=== PATIENT | male | born 1995 | race Caucasian/White ===

== ENCOUNTER 2022-07-15 06:24 | Emergency (ER) | payer OTHER ==
[2022-07-15 06:35] VITALS: TEMP 98
[2022-07-15] MEDS ORDERED: PANTOPRAZOLE 40 MG/10 ML VIAL IVP STA (06:43)
[2022-07-15] MEDS ORDERED: SODIUM CHLORIDE 0.9% 2,000 ML IV STA (06:43)
[2022-07-15] MEDS ORDERED: ONDANSETRON 4 MG/2 ML VIAL IVP STA (06:43)
[2022-07-15] MEDS ORDERED: KETOROLAC 15 MG/ML 1 ML VIAL IVP STA (06:43)
[2022-07-15] MEDS ORDERED: MAG HYDROX/AL HYDROX/SIMETH 30 ML, HYOSCYAMINE ELIXIR 10 ML PO STA ×2 (06:44)
--- NOTE | 2022-07-15 06:46 | ED ---
Abdominal Pain HPI - General Chief Complaint: Abdominal Pain Stated Complaint: Abdominal Pain, Vomiting Time Seen by Provider: 07/15/22 06:29 Source: patient, RN notes reviewed Mode of arrival: ambulatory Limitations: no limitations - History of Present Illness Initial Comments: This a 26-year-old male presents emergency Department chief complaint of abd ominal pain, nausea vomiting. Patient states he is eating some jalapeno poppers last night states that did not sit well he states around midnight started vomiting a temp to eat after that and states he's been vomiting persistently for last 4 hours. Patient denies any fevers or chills no sick contacts. Patient states that he has diffuse abdominal plain non-localized. No dysuria no hematuria denies having any bowel movements. Patient has no dysuria no reported fever denies any severe past medical history. - Related Data Previous Rx's Medication Instructions Recorded Ondansetron Odt [Zofran Odt] 4 mg PO Q8HR PRN #10 tab 07/15/22 Allergies Allergy/AdvReac Type Severity Reaction Status Date / Time No Known Allergies Allergy Verified 07/15/22 06:32 Review of Systems ROS Statement: Those systems with pertinent positive or pertinent negative responses have been documented in the HPI. ROS Other: All systems not noted in ROS Statement are negative. Past Medical History Past Medical History: No Reported History History of Any Multi-Drug Resistant Organisms: None Reported Past Surgical History: No Surgical Hx Reported Past Psychological History: Anxiety, Depression Smoking Status: Current every day smoker Past Alcohol Use History: Occasional Past Drug Use History: None Reported General Exam Limitations: no limitations General appearance: alert, in no apparent distress Head exam: Present: atraumatic, normocephalic, normal inspection Eye exam: Present: normal appearance, PERRL, EOMI. Absent: scleral icterus, conjunctival injection, periorbital swelling ENT exam: Present: normal exam, normal oropharynx, mucous membranes moist Neck exam: Present: normal inspection, full ROM. Absent: tenderness, meningismus, lymphadenopathy Respiratory exam: Present: normal lung sounds bilaterally. Absent: respiratory distress, wheezes, rales, rhonchi, stridor Cardiovascular Exam: Present: regular rate, normal rhythm, normal heart sounds. Absent: systolic murmur, diastolic murmur, rubs, gallop, clicks GI/Abdominal exam: Present: soft, tenderness (Diffuse), normal bowel sounds. Absent: distended, guarding, rebound, rigid Neurological exam: Present: alert Skin exam: Present: warm, dry, intact, normal color. Absent: rash Course Vital Signs 07/15/22 06:32 Temperature 98 F Pulse Rate 66 Respiratory 16 Rate Blood Pressure 159/87 O2 Sat by Pulse 98 Oximetry Medical Decision Making - Medical Decision Making 26 -year-old male presented from for nausea vomiting abdominal pain. Patient ct does not show any acute process. Patient has enteritis-type symptoms. Patient was hydrated, given antiemetics will be discharged in stable condition return parameters discussed. - Lab Data Result diagrams: 07/15/22 06:46 07/15/22 06:46 Lab Results 07/15/22 07/15/22 Range/Units 06:46 06:46 WBC 8.9 (3.8-10.6) k/uL RBC 5.02 (4.30-5.90) m/uL Hgb 14.9 (13.0-17.5) gm/dL Hct 43.1 (39.0-53.0) % MCV 85.8 (80.0-100.0) fL MCH 29.6 (25.0-35.0) pg MCHC 34.5 (31.0-37.0) g/dL RDW 13.6 (11.5-15.5) % Plt Count 258 (150-450) k/uL MPV 8.7 Neutrophils % 72 % Lymphocytes % 20 % Monocytes % 4 % Eosinophils % 1 % Basophils % 1 % Neutrophils # 6.5 (1.3-7.7) k/uL Lymphocytes # 1.8 (1.0-4.8) k/uL Monocytes # 0.3 (0-1.0) k/uL Eosinophils # 0.1 (0-0.7) k/uL Basophils # 0.1 (0-0.2) k/uL Sodium 138 (137-145) mmol/L Potassium 4.1 (3.5-5.1) mmol/L Chloride 104 (98-107) mmol/L Carbon Dioxide 26 (22-30) mmol/L Anion Gap 8 mmol/L BUN 13 (9-20) mg/dL Creatinine 1.02 (0.66-1.25) mg/dL Est GFR (CKD-EPI)AfAm >90 (>60 ml/min/1.73 sqM) Est GFR (CKD-EPI)NonAf >90 (>60 ml/min/1.73 sqM) Glucose 135 H (74-99) mg/dL Calcium 9.5 (8.4-10.2) mg/dL Total Bilirubin 0.3 (0.2-1.3) mg/dL AST 31 (17-59) U/L ALT 56 H (4-49) U/L Alkaline Phosphatase 54 (38-126) U/L Total Protein 7.1 (6.3-8.2) g/dL Albumin 4.8 (3.5-5.0) g/dL Amylase 44 (30-110) U/L Lipase 61 (23-300) U/L Disposition Clinical Impression: Enteritis, Abdominal pain Disposition: HOME SELF-CARE Condition: Stable Instructions (If sedation given, give patient instructions): Abdominal Pain (ED) Additional Instructions: Please return to the Emergency Department if symptoms worsen or any other concerns. Prescriptions: Ondansetron Odt [Zofran Odt] 4 mg PO Q8HR PRN #10 tab PRN Reason: Nausea Is patient prescribed a controlled substance at d/c from ED?: No Referrals: None,Stated [Primary Care Provider] - 1-2 days Time of Disposition: 08:07
[2022-07-15 06:58] LABS: Basophils # (A) 0.1 k/uL (0-0.2); Basophils % (A) 1 %; Eosinophils # (A) 0.1 k/uL (0-0.7); Eosinophils % (A) 1 %; HCT 43.1 % (39.0-53.0); HGB 14.9 gm/dL (13.0-17.5); Lymphocytes # (A) 1.8 k/uL (1.0-4.8); Lymphocytes % (A) 20 %; MCH 29.6 pg (25.0-35.0); MCHC 34.5 g/dL (31.0-37.0); MCV 85.8 fL (80.0-100.0); Mean Platelet Volume 8.7; Monocytes # (A) 0.3 k/uL (0-1.0); Monocytes % (A) 4 %; Neutrophils # (A) 6.5 k/uL (1.3-7.7); Neutrophils % (A) 72 %; Platelet Count 258 k/uL (150-450); RBC 5.02 m/uL (4.30-5.90); RDW 13.6 % (11.5-15.5); WBC 8.9 k/uL (3.8-10.6)
[2022-07-15 07:13] LABS: ALT 56 U/L (4-49); AST 31 U/L (17-59); African American GFR (CKD) >90 (>60 ml/min/1.73 sqM); Albumin 4.8 g/dL (3.5-5.0); Alkaline Phosphatase 54 U/L (38-126); Amylase 44 U/L (30-110); Anion Gap 8 mmol/L; Blood Urea Nitrogen 13 mg/dL (9-20); Calcium 9.5 mg/dL (8.4-10.2); Carbon Dioxide 26 mmol/L (22-30); Chloride 104 mmol/L (98-107); Glucose 135 mg/dL (74-99); Lipase 61 U/L (23-300); Non-African American GFR(CKD) >90 (>60 ml/min/1.73 sqM); Potassium 4.1 mmol/L (3.5-5.1); Sodium 138 mmol/L (137-145); Total Bilirubin 0.3 mg/dL (0.2-1.3); Total Protein 7.1 g/dL (6.3-8.2)
[2022-07-15] MEDS ORDERED: HYDROmorphone 0.5 MG/0.5 ML SYRINGE IVP STA (07:22)
--- NOTE | 2022-07-15 08:27 | CT ---
EXAMINATION TYPE: CT abdomen pelvis w con CT DLP: 3165 mGycm, Automated exposure control for dose reduction was used. DATE OF EXAM: 07/15/2022 8:18 AM COMPARISON: None. . CLINICAL INDICATION:Male, 26 years old with history of pain; Abdominal pain, vomiting TECHNIQUE: Standard CT of the abdomen and pelvis following the administration of 100 cc of Isovue 3 00 IV contrast material. Coronal and sagittal reformats were performed. FINDINGS: LOWER CHEST: Unremarkable ABDOMEN LIVER: Unremarkable GALLBLADDER AND BILE DUCTS: Unremarkable. PANCREAS: Unremarkable. SPLEEN: Mildly enlarged measuring 14.9 cm in CC dimension. ADRENAL GLANDS: Unremarkable. KIDNEYS AND URETERS: No evidence of hydronephrosis or renal calculus. The kidneys enhance symmetrical ly without suspicious focal lesion. PELVIS BLADDER: Incompletely distended but grossly unremarkable. REPRODUCTIVE: Unremarkable. ABDOMEN & PELVIS STOMACH AND BOWEL: Stomach and duodenum are unremarkable . No focal wall thickening. The appendix is within normal limits. No evidence of bowel obstruction. PERITONEUM: No evidence of pneumoperitoneum or free fluid. VASCULATURE: No evidence of aortic aneurysm. MUSCULOSKELETAL: No acute osseous abnormalities LYMPH NODES: No gross evidence for lymphadenopathy. SOFT TISSUE/ABDOMINAL WALL: Unremarkable IMPRESSION: 1. No acute abdominal/pelvic process. 2. Mild splenomegaly.
[2022-07-15 15:16] VITALS: BP 179/71; PULSE 62; RESP 18
== END 2022-07-15 09:00 | disposition home or self-care (01) ==
LOC: EC 06:24
DX: K52.9 Noninfective gastroenteritis and colitis, unspecified (principal); F17.200 Nicotine dependence, unspecified, uncomplicated
CPT/HCPCS: 99284 ×2; 96374 ×2; 96375 ×4; 96361 ×2; 36415; 80053; 82150; 83690; 85025; 74177; J2405; J1885; C9113; J1170; Q9967